=== PATIENT | male | born 1950 | race Caucasian/White ===

== ENCOUNTER → 2017-01-26 | Outpatient (REF) | LOC: ZLAB.WCH 15:25 | DX: Z01.89 Encounter for other specified special examinations (principal) | CPT/HCPCS: G0103 ==

== ENCOUNTER → 2017-12-21 | Outpatient (REF) ==
[2017-12-21 18:53] LABS: THYROID STIMULATING HORMONE 1.93 uIU/mL (0.465-4.680)
== END ==
LOC: ZLAB.WCH 18:07
PROVIDERS: Internal Medicine
DX: Z01.89 Encounter for other specified special examinations (principal)
CPT/HCPCS: G0103

== ENCOUNTER → 2018-01-19 | Outpatient (REF) | LOC: COL.CARD 08:32 | DX: Z01.89 Encounter for other specified special examinations (principal) ==

== ENCOUNTER → 2018-08-26 | Outpatient (REF) | LOC: COL.CARD 10:47 | DX: Z01.818 Encounter for other preprocedural examination (principal) ==

== ENCOUNTER 2019-11-12 06:43 | Emergency (ER) | payer MEDICARE, OTHER ==
[~2019-11-12] VITALS: Ht 182.9 cm; Wt 95.5 kg
[2019-11-12 07:39] LABS: ALANINE AMINOTRANSFERASE 22 U/L (21-72); ALBUMIN 3.9 gm/dL (3.5-5.0); ALKALINE PHOSPHATASE 114 U/L (50-136); ANION GAP 8 mmol/L (7-16); AST,SGOT 38 U/L (15-37); BILIRUBIN,TOTAL 0.6 mg/dL (0.0-1.0); BLOOD UREA NITROGEN 15 mg/dL (9-20); CALCIUM 8.4 mg/dL (8.4-10.2); CARBON DIOXIDE 27 mmol/L (22-30); CHLORIDE 106 mmol/L (98-107); CREATININE, serum 0.67 (0.66-1.25); GLUCOSE 148 mg/dL (74-106); POTASSIUM 3.3 mmol/L (3.4-5.0); SODIUM 141 mmol/L (137-145); TOTAL PROTEIN 7.1 gm/dL (6.4-8.2)
[2019-11-12 07:51] LABS: BASO % 0.1 % (0.0-2.0); EOS # 0.1 (0.0-0.7); EOS % 1.3 % (0-4.0); GRAN # 7.2 (1.4-6.5); GRAN % 79.1 % (42.2-75.2); HEMATOCRIT 46.7 % (42.0-52.0); HEMOGLOBIN 15.3 g/dl (13.5-18.0); LYMPH # 1.2 (1.2-3.4); LYMPH % 13.3 % (20.0-51.0); MEAN CELL VOLUME 93 fl (80.0-100.0); MEAN CORPUSCULAR HEMOGLOBIN 31 pg (27.0-31.0); MEAN CORPUSCULAR HGB CONC 33 g/dl (33.0-37.0); MEAN PLATELET VOLUME 10.2 fl (7.4-10.4); MONO # 0.5 (0.1-0.6); MONO % 5.6 % (1.7-9.3); PLATELET COUNT 191 K/mm3 (130-400); RED BLOOD COUNT 5.02 M/mm3 (4.20-5.60); REDCELL DISTRIBUTION WIDTH-CV 12.6 % (11.5-14.5)
[2019-11-12 07:53] LABS: PROTHROMBIN TIME 12.2 SECONDS (9.7-12.8)
[2019-11-12 07:56] LABS: PARTIAL THROMBOPLASTIN TIME 28.4 SECONDS (26.0-37.0)
[2019-11-12 07:57] LABS: TROPONIN-I < 0.012 ng/mL (0.000-0.035)
[2019-11-12] MEDS ORDERED: ASPIRIN 32325 MG/TA1 PO (09:14)
[2019-11-12] MEDS ORDERED: CARDIZEM LA360 MG PO (09:15)
[2019-11-12] MEDS ORDERED: PRILOSEC 20MG20 MG PO (09:15)
[2019-11-12] MEDS ORDERED: COREG 6.256.25 MG/TA PO (09:16)
[2019-11-12] MEDS ORDERED: COZAAR100 MG PO (09:16)
[2019-11-12] MEDS ORDERED: K-DUR 10 MEQ T10 MEQ PO (09:17)
[2019-11-12] MEDS ORDERED: LIPITOR 40MG TA40 MG PO (09:18)
[2019-11-12] MEDS ORDERED: LASIX 20MG TABL20 MG PO (09:18)
[2019-11-12 19:15] VITALS: BP 128/106; PULSE 81; TEMP 97.8
[2019-11-12 19:30] LABS: COLLECTION METHOD CLEAN CATCH
[2019-11-12 19:36] LABS: PH 7 (5-8); SQUAMOUS EPITHELIAL None Seen /hpf; URINE APPEARANCE Clear; URINE BACTERIA None Seen /hpf; URINE BILIRUBIN Negative (NEGATIVE); URINE BLOOD Negative (NEGATIVE); URINE COLOR Straw; URINE GLUCOSE Negative (NEGATIVE); URINE KETONE Negative (NEGATIVE); URINE LEUKOCYTE ESTERASE Negative (NEGATIVE); URINE NITRATE Negative (NEGATIVE); URINE PROTEIN(semi-quant) Negative (NEGATIVE); URINE RBC 0-2 /hpf; URINE UROBILINOGEN Negative (NEGATIVE)
== END 2019-11-12 19:32 | disposition short-term general hospital (02) ==
LOC: COL.ER 06:43
PROVIDERS: Emergency Medicine
DX: I62.9 Nontraumatic intracranial hemorrhage, unspecified (principal); I10 Essential (primary) hypertension; Z79.82 Long term (current) use of aspirin
CPT/HCPCS: J1953; J2405; J7030; J7050; Q9967

== ENCOUNTER 2019-11-16 11:28 | Inpatient (IN) | payer MEDICARE, OTHER ==
[~2019-11-16] VITALS: Ht 182.9 cm; Wt 116.8 kg
[~2019-11-16 11:28] MED LIST: ASPIRIN 32325 MG/TA1 PO; CARDIZEM LA360 MG PO; COREG 6.256.25 MG/TA PO; COZAAR100 MG PO; K-DUR 10 MEQ T10 MEQ PO; LASIX 20MG TABL20 MG PO; LIPITOR 40MG TA40 MG PO; PRILOSEC 20MG20 MG PO
[2019-11-16 15:41] VITALS: BP 131/66; PULSE 63; TEMP 97.8
--- NOTE | 2019-11-16 16:07 | NUR ---
Pt arrived via transport in wheelchair in clothes and shoes. Pleasant, reports visual deficits, WASH OPERATOR assisted with amb in room & BR noting significant peripheral neglect. Informed pt's of his arrival. Called room service as pt has not had lunch, they will send him a supper tray.
[2019-11-16] MEDS ORDERED: CLARITIN 1010 MG/TAB PO (16:34)
[2019-11-16] MEDS ORDERED: KLOR-CON 1010 MEQ PO (16:39)
--- NOTE | 2019-11-17 | NUR ---
REQUEST TO SIT UP IN RECLINER. CHAIR ALARM SET. CALL LIGHT IN REACH.
--- NOTE | 2019-11-17 03:05 | NUR ---
HAS BEEN SITTING UP IN RECLINER FOR AWHILE. ASSISTED PT TO BR WITH WALKER. HAS SIGNIFICANT VISUAL DEFICITS D/T CVA. NEEDS MUCH DIRECTIONAL CUING. PT A&OX4. VERY PLEASANT. VOIDED W/O DIFFICULTY. RETURNED TO BED. LT HAND SWOLLEN. PLACED UP ON PILLOW. OCCIPITAL MAGALLON BETTER. CALL LIGHT IN REACH. BED ALARM SET.
[2019-11-17 05:17] VITALS: BP 171/79; PULSE 71; TEMP 98.1
--- NOTE | 2019-11-17 05:58 | NUR ---
PT SITTING UP IN RECLINER. SBP 171. C/0 H/A. SEE MAR FOR TY;ENOL GIVEN.
[2019-11-17 08:10] VITALS: BP 165/76; PULSE 73
--- NOTE | 2019-11-17 11:29 | NUR ---
Pt requested AHA diet, per Meghan Karimi RD, changed order
--- NOTE | 2019-11-17 14:35 | NUR ---
SW met with the patient to complete initial intake, as the patient is new to [facility]. Also present was his (Daria, ph#[phone]) and his sisters (Melissa & Araceli). The patient lives in [place] with his . He reports needing some assistance with ADLs prior to hospitalization and does not have any DME. The patient's PCP is Dr. Pino Mejia and he receives his medications at [facility]. He reports no difficulties obtaining his meds. The patient does not have advanced directives in EMR, but he states that he does have them completed and at home. He states that his is his DPOA-HC. NANCY then discussed having a patient/family meeting. The meeting was scheduled for next Wednesday, 11/21, at at [id number]. NANCY notified IPR Director. The patient's sisters would also like to be on speaker phone during the meeting. SW to continue to follow. Melissa: ph#[phone] Araceli: ph#[phone]
[2019-11-17 17:13] VITALS: BP 152/67; PULSE 64; TEMP 98.5
--- NOTE | 2019-11-17 18:18 | NUR ---
Pt in chair, had lots of visitors, alarm on, call lt in reach, visiting.
--- NOTE | 2019-11-17 20:47 | NUR ---
Bedside report to RONNIE Zapata.
--- NOTE | 2019-11-17 21:00 | NUR ---
HS meds along with tylenol reviewed and given. Patient ambulates in hallway to surgical unit back to IPR and then to medical unit and back to room. Verbal directional cueing given frequently especially in room due to poor eyesight. "tunnel vision". Up to the bathroom x 2 and manages all toileting tasks. Sits up in recliner and snack of sherbert and fruit cup given.
--- NOTE | 2019-11-17 23:05 | NUR ---
Patient reports "feeling funny" "maybe because tylenol working for headache" Pupils EZIO, hand pega developer strong and equal. BP 163/77, HR 67, R 18, Sao2 95 RA, T 98.0. Sits up in recliner.
[2019-11-17 23:07] VITALS: BP 163/77; PULSE 67; TEMP 98
--- NOTE | 2019-11-18 01:52 | NUR ---
PATIENT HAS BEEN RESTING IN RECLINER WITH EYES CLOSED UNTIL NOW. UP TO THE BATHROOM AND VOIDS. SITS BACK UP IN RECLINER. DENIES HEADACHE AT THIS TIME.
--- NOTE | 2019-11-18 02:57 | NUR ---
Patient rests with eyes closed up in recliner. SCD's on.
[2019-11-18 04:30] VITALS: BP 165/81; PULSE 63; TEMP 98.5
--- NOTE | 2019-11-18 08:10 | NUR ---
Patient resting in recliner at this time with PT visiting with him. Reports a headache and given prn tylenol. Will continue to monitor.
[2019-11-18 17:27] VITALS: BP 159/76; PULSE 66; TEMP 98
--- NOTE | 2019-11-18 19:30 | NUR ---
Patient reports mild headache and tylenol given. in visiting and patient talking on phone.
--- NOTE | 2019-11-18 19:40 | NUR ---
Patient's wanted to know when more labs would be drawn for her . This nurse will follow up with Dr. Escoto on Wednesday to see what labs he would like to order if any. Patient and were okay with this. Patient had a headache this morning and was given prn tylenol with good effect. Patient attended all therapies today. This nurse took him for a walk down [address] and back this afternoon. Reported off to night nurse.
--- NOTE | 2019-11-18 22:00 | NUR ---
Patient assisted to the bathroom then rests back in bed. No complaints of headache at this time.
--- NOTE | 2019-11-19 02:57 | NUR ---
Patient rests with eyes closed. Respirations with ease.
[2019-11-19 04:30] VITALS: BP 156/77; PULSE 66; TEMP 98.5
--- NOTE | 2019-11-19 04:31 | NUR ---
Patient up to the bathroom without device and verbal cueing. Sits up in recliner. Reports occipatal headache 3 and tylenol given. See vitals. States "had best night sleep since I've been here".
--- NOTE | 2019-11-19 10:34 | NUR ---
PT REMAINS WITH TUNNEL VISION. PERIPHERALLY THERE ARE GRAYISH AREAS WITH SOME BLOBS. GAIT IS STEADY AND SLOW WITH PT TAKEING CARE NOT TO FALL. GAIT BELT ON FOR ASSIST, PT IS CGA. SWELLING IN THE LEFT HAND,ARM AND ALBERT LOWER EXTREMITIES. NSG ASSESSMENT COMPLETED THIS AM. PT VOIDS EASILY AND HAD A MED Sigmascreening BROWN STOOL THIS AM.
--- NOTE | 2019-11-19 12:41 | NUR ---
CHAIR ALARM ON, PT HAS BEEN IMPULSIVE. GAIT STERADY SIGHT IS THE SAME BEFORE
[2019-11-19 16:14] VITALS: BP 154/77; PULSE 60; TEMP 98.4
--- NOTE | 2019-11-19 19:44 | NUR ---
Sitting up in chair. Requests to ambulate to bathroom then in halls. Voids clear yellow urine without difficulty. Ambulates with assist of one in halls. Gait steady. Returns to room and sits up in chair. Denies needs at this time.
--- NOTE | 2019-11-19 21:15 | NUR ---
Patient having headache. Says that since the stroke he has had a constant headache, gets worse at times. Denies this being any worse than it has been. Says he did have some headaches prior to the stroke but it has been pretty constant since the stroke. BP 152/73. Administered Tylenol as prescribed. Patient denies further needs at this time.
[2019-11-19 21:38] VITALS: BP 152/73
--- NOTE | 2019-11-19 23:25 | NUR ---
Patient ambulates to bathroom with assist of one. Gait steady, continues to have issues with peripheral vision. Assisted patient into bed. Encouraged use of call light if needing to get up. SCDs applied. Patient denies further needs.
[2019-11-20 02:20] VITALS: BP 169/88; PULSE 67
--- NOTE | 2019-11-20 02:23 | NUR ---
Up to bathroom to void. Returns to bed. Requests Tylenol for slight headache. BP 169/88. Administered Tylenol as prescribed. Patient denies further needs.
--- NOTE | 2019-11-20 04:00 | NUR ---
Lying in bed with eyes closed. Respirations even and unlabored. No signs or symptoms of discomfort ntoed.
[2019-11-20 05:16] VITALS: BP 158/82; PULSE 69; TEMP 97.6
--- NOTE | 2019-11-20 05:55 | NUR ---
Assisted patient into bathroom to void. Voids without difficulty. Patient washes hands and face at sink. Assisted patient to the chair. Provided fresh water. Patient says that he continues to have a little bit of a headache. Patient denies needs at this time.
--- NOTE | 2019-11-20 09:46 | NUR ---
Patient wanting to know when they will drawing blood on him again to check his labs. This will be discussed with physician today. Patient has been worried about his blood pressure reporting that when he was at the other hospital they were trying to make sure that his SBP was kept around 140. This will be communicated to the physician today. Patient resting in recliner at this time. Denies questions, has call light in reach and chair alarm on.
--- NOTE | 2019-11-20 13:35 | NUR ---
Admission QIM scores were reviewed by the team. Code of 4 chosen for walk 10 feet was determined by team discussion to be the most usual performance before interventions for this patient during the assessment period.--Laurence Harrell,
--- NOTE | 2019-11-20 14:06 | NUR ---
Patient resting in recliner at this time. Denies any questions.
--- NOTE | 2019-11-20 14:41 | NUR ---
NANCY met with the patient and his , Daria to discuss weekend care. The patient reports everything was great and everyone has been wonderful. The patient reports he was feeling a little down because he could not get a hold of his on the phone and MIGUEL ANGEL Hilario cheered him up. NANCY reminded the patient and Daria of the family meeting on 11/21. The patient would like his sisters to be present via telephone. Araceli and Jessica . Will continue to monitor.
[2019-11-20 16:59] VITALS: BP 140/77; PULSE 61; TEMP 97.6
--- NOTE | 2019-11-20 20:00 | NUR ---
UP IN CHAIR DURING SHIFT CHANGE REPORT FROM DAY SHIFT NURSE. CHAIR ALARM ENGAGED.
--- NOTE | 2019-11-21 01:08 | NUR ---
Resting with eyes closed, breathing nonlabored and even. Bed alarm engaged.
[2019-11-21 05:09] VITALS: BP 161/78; PULSE 67; TEMP 98.2
--- NOTE | 2019-11-21 07:17 | NUR ---
Patient up in chair during shift change report given to day shift nurse. Chair alarm engaged.
--- NOTE | 2019-11-21 12:23 | NUR ---
Patient attended all therapies this morning he is currently resting in his recliner eating his lunch. Denies pain at this time. He had a visitor following morning therapy today.
[2019-11-21 16:15] VITALS: BP 153/75; PULSE 61; TEMP 97.6
--- NOTE | 2019-11-21 16:42 | NUR ---
SW attended family meeting with the patient, the patient's , Daria, the patient's sisters, Araceli and Melissa via telephone and his friend Usama. Also present was IPR Director, PT, OT, and ST. IPR Director started by explaining the purpose of the meeting. PT, OT, and ST discussed the patient's progress. The patient's anticipated discharge date 11/24/19. Home assessement 11/23/19 at 1300. The patient and his family were in agreeance with this. After the family meeting SW met with the patient and the patient's to discuss outpatient physical therapy choices. The choice is outpatient physical therapy at [facility] on [address]. SW attempted to contact [facility], left message. NANCY later presented the IPR Team Conference Team Note. There were no questions. oil well services field supervisor will continue to follow.
--- NOTE | 2019-11-21 20:00 | NUR ---
UP IN CHAIR DURING SHIFT CHANGE REPORT. CHAIR ALARM ENGAGED
--- NOTE | 2019-11-21 20:43 | NUR ---
Patient notified nurse that he was not feeling right. This nurse assessed patient with VSS BP 151/77, P 60, O2 96%; R 20. Patient denied any pain. He said he thinks that he may just be tired from seeing all the company tonight. Reported findings to night nurse. She will continue to monitor. did report that she would be having his pace maker checked tomorrow.
[2019-11-21 20:47] VITALS: BP 151/77; PULSE 60
--- NOTE | 2019-11-21 23:32 | NUR ---
STILL REPORTS "I STILL FEEL DIFFERENT" REPORTS SOME DIZZINESS AND SLIGHT NAUSEA. SPEECH CLEAR, NO FACIAL DROOPING, NO WORSENING OF VISUAL DEFICIT, A&O X4, DENIES WEAKNESS TO BODY, DENIES PROBLEMS WITH THINKING. DENIES CHEST PAIN, SHORTNESS OF BREATH. REPORTS WHEN VISITING WITH STAFF, "I FEEL BETTER".
[2019-11-22 02:14] VITALS: BP 157/86; PULSE 65; TEMP 97.8
--- NOTE | 2019-11-22 05:28 | NUR ---
UP IN CHAIR, CHAIR ALARM ENGAGED. DENIES ANY DISCOMFORT CURRENTLY.
--- NOTE | 2019-11-22 07:49 | NUR ---
PATIENT UP IN CHAIR DURING SHIFT CHANGE REPORT GIVEN TO DAY SHIFT NURSE. CHAIR ALARM ENGAGED
[2019-11-22 18:00] VITALS: BP 153/75; PULSE 61; TEMP 97.7
--- NOTE | 2019-11-22 18:00 | NUR ---
Patient has been doing well today. No complaints of pain. He has been resting most the day. His was here this evening. Patient is hoping to discharge by Wednesday. No other changes at this time. Call light within reach.
--- NOTE | 2019-11-22 20:00 | NUR ---
Patient ambulates without device and gaitbelt in hallway accompanied by REVERSE ENGINEER.
--- NOTE | 2019-11-22 20:40 | NUR ---
Hs meds along with tylenol for mild headache reviewed and given. Alert and oriented x 4. Sits up in recliner. States he may stay up until 2200.
--- NOTE | 2019-11-22 22:00 | NUR ---
Patient rests with eyes closed up in recliner. Respirations with ease.
--- NOTE | 2019-11-23 | NUR ---
Patient fell asleep in recliner and awakened to offer assist to bed. States tylenol helped and denies headache. Up to the bathroom and to bed. Removes pants shoes and socks. Nurse assists with yellow socks and SCD's on.
--- NOTE | 2019-11-23 02:59 | NUR ---
Patient rests with eyes closed. Respirations with ease.
[2019-11-23 05:23] VITALS: BP 164/82; PULSE 71; TEMP 97.6
--- NOTE | 2019-11-23 05:27 | NUR ---
Patient has been resting with eyes closed. Awakened for vitals/med. Up to the bathroom and rests back in bed.
--- NOTE | 2019-11-23 16:42 | NUR ---
SW presented the IM form to the patient. The patient understood and signed the form. The original was placed in the chart and copy was provided to the patient.
[2019-11-23 17:30] VITALS: BP 149/72; PULSE 60; TEMP 97.7
--- NOTE | 2019-11-23 20:00 | NUR ---
PT SITTING IN RECLINER. SITTING ON SOFA. PT MADE MOD I IN ROOM TODAY. REVIEWED NEED TO CALL FOR SBA IF NEEDED. PT RELATED VISIUAL FIELD SLOWLY IMPROVING EVERYDAY. PT DENIES HEADACHE PAIN. RELATES FEELS REALLY GOOD TONIGHT.
--- NOTE | 2019-11-23 22:15 | NUR ---
Report this morning from RONNIE Zapata. Pt was made Independent in room without device after therapies today. Completed home eval. Called for f/u appts, left messages with OP PT/OT and neuro. Tylenol for headaches. visited throughout the day. Bedside report to RONNIE Lowery.
[2019-11-24 06:15] VITALS: BP 160/80; PULSE 63; TEMP 97.5
--- NOTE | 2019-11-24 06:28 | NUR ---
GAVE TYLENOL FOR MILD H/A BEFORE. PT INDEPENDENT. GETTING UP TO BR.
--- NOTE | 2019-11-24 09:46 | NUR ---
Patient working with therapy at this time. Reported sleeping well last night. He is independent in his room with a walker and is able to put his TLSO on independently. Patient denied any questions this AM. Will continue to monitor.
[2019-11-24] MEDS ORDERED: K-DUR20 MEQ PO (11:07)
[2019-11-24] MEDS ORDERED: HCTZ 25MG TAB25 MG PO (11:08)
--- NOTE | 2019-11-24 13:30 | NUR ---
Patient wanted a shower prior to his discharge. He was independent with all tasks only requiring ques walking to the shower and handing him towels to dry off. He was indepdent with getting all his clothes on and off and did all of his own grooming.
--- NOTE | 2019-11-24 14:00 | NUR ---
Patient Health Summary, Discharge Summary, and Home Meds printed and reviewed with patient and . Stressed importance of follow up appointments. Called prescriptions for aspirin to pharmacy of choice. Belongings gathered by MIGUEL ANGEL/Sulaiman including glasses, phone, general medical practitioner, ring, clothes, shoes and laundry from hamper. Patient and denied any questions.
--- NOTE | 2019-11-24 14:04 | NUR ---
Discharge QIM scores were reviewed by the team. Code of 6 chosen for toileting transfers was determined by team discussion to be the most usual performance for this patient during the assessment period. Code of 6 chosen for upper body dressing was determined by team discussion to be the most usual performance for this patient during the assessment period. Code of 6 chosen for chair/bed to chair transfers was determined by team discussion to be the most usual performance for this patient during the assessment period. Code of 6 chosen for walk 10 feet was determined by team discussion to be the most usual performance for this patient during the assessment period. As pt was independent in his room.--Laurence Harrell, PD
== END 2019-11-24 15:00 | disposition home or self-care (01) | DRG 57 ==
PROVIDERS: ADMIT Internal Medicine
DX: I69.20 Unspecified sequelae of other nontraumatic intracranial hemorrhage (principal); H53.462 Homonymous bilateral field defects, left side; I25.10 Atherosclerotic heart disease of native coronary artery without angina pectoris; I11.0 Hypertensive heart disease with heart failure; I50.9 Heart failure, unspecified; C61 Malignant neoplasm of prostate; E78.5 Hyperlipidemia, unspecified; J45.909 Unspecified asthma, uncomplicated; H18.51 Endothelial corneal dystrophy; K21.9 Gastro-esophageal reflux disease without esophagitis; D50.9 Iron deficiency anemia, unspecified; M19.90 Unspecified osteoarthritis, unspecified site; I25.2 Old myocardial infarction; R53.81 Other malaise; Z95.0 Presence of cardiac pacemaker; Z95.1 Presence of aortocoronary bypass graft; Z85.46 Personal history of malignant neoplasm of prostate; Z79.82 Long term (current) use of aspirin
CPT/HCPCS: 99222-AI; 99231-AI; 99239

== ENCOUNTER 2020-05-20 09:00 | Outpatient (RCR) | payer MEDICARE, OTHER ==
[~2020-05-20 09:00] MED LIST changes: +CLARITIN 1010 MG/TAB PO; +HCTZ 25MG TAB25 MG PO; +K-DUR20 MEQ PO; +KLOR-CON 1010 MEQ PO
== END 2020-08-13 | disposition still patient (30) ==
LOC: WSOT
DX: I61.1 Nontraumatic intracerebral hemorrhage in hemisphere, cortical (principal); G08 Intracranial and intraspinal phlebitis and thrombophlebitis; H53.9 Unspecified visual disturbance